=== PATIENT | female | born 1980 | race Caucasian/White ===

== ENCOUNTER 2020-09-24 11:15 | Inpatient (IN) ==
[2020-09-24] MEDS ORDERED: OXYTOCIN 30 UNITS/500 ML BAG IV PRN ×2 (11:50→14:36)
[2020-09-24] MEDS: LACTATED RINGER'S 1,000 ML IV PRN ×2 (12:07→13:02)
--- NOTE | 2020-09-24 12:12 | History & Physical Report ---
Date of Service September 24, 2020 Assessment & Plan (1) Supervision of elderly multigravida: Admit to L&D. Labs, EFM, toco. IV access. COVID swab per policy. Initial BP 130s/90s, will also obtain preeclampsia labs to r/o (CBC already ordered, CMP, pro/creat ratio). Initial urine dip 4+ proteinuria with large blood. Anticipate . Would like epidural. Admission and Anticipated Discharge Date Admission Date: September 24, 2020 History of Present Illness Chief Complaint: contractions Primary Care Provider: NUBIA Ovalle 39yo @ 40 09/27, presents with worsening contractions. Was at L&D last night for eval for r/o labor, over that time did not have cervical change and was not ashley in a labor pattern and was discharged home. Since then, ctx have gotten stronger and closer together. She returns with report of ctx Q4 min. No ROM. + movement. No vaginal bleeding. complicated by AMA, h/o 36w delivery with prior . Rh positive, rubella immune, GBS neg. Allergies Allergy/AdvReac Type Severity Reaction Status Date / Time Sulfa (Sulfonamide Allergy Severe ANAPHYLAXIS Verified 09/24/20 11:27 Antibiotics) Home Medications Medication Instructions Recorded Confirmed Type prenat.vits,denny,euc-nwld-kaxlj 1 tab PO DAILY 02/23/20 09/24/20 History breast pump #1 ea 07/27/20 09/21/20 Rx Patient History Medical History Encounter for anatomic survey premature rupture of membranes Surgical History S/P wisdom tooth extraction Family History Grandmother (Maternal) Twin Aunt Twin Breast cancer Father Hypertension Social History Smoking Status: Never smoker Hx Alcohol Use: No Hx Substance Use: No Preferred Language: Latvian Communication Ability: Effective Beliefs That Will Affect Care: None marital status: marital status details: Gallo (39) [phone] Current Living Situation: Spouse Current Living Situation Comment: Lives with spouse, daughter, 1 dog. current occupational status: employed current occupation: Chiropractor. Other Information That Helps Us Care for You: No Feels Safe at Home: Yes Safety Concerns: Feels Safe At This Time Assistive Devices: None Review of Systems All systems reviewed & are unremarkable except as noted in HPI & below Physical Exam Constitutional: WD/WN, vitals as above Respiratory: normal respiratory effort, lungs clear to auscultation no respiratory distress Cardiovascular: Rate/Rhythm: regular rate and regular rhythm Gastrointestinal (Abdomen): Inspection/Auscultation: abdomen normal to inspection Percussion/Palpation: abdomen soft; abdomen nontender Gravid. No s/s chorio or abruption. Skin: no rashes, warm and dry Psychiatric: A+Ox3, euthymic affect Results & Data ([facility]) Vital Signs (Past 12 Hours) Vital Signs Temp Pulse Resp BP 09/24/20 11:55 83 137/97 09/24/20 11:37 88 138/96 09/24/20 11:26 36.7 C 18 09/24/20 11:24 95 H 137/92 Monitoring External Monitor FHT Cat 1 [place] Q 2-4 min SVE 7cm with bulging membranes per RN check Coding Level of Care Code None Diagnoses Supervision of elderly multigravida O09.529
[2020-09-24] MEDS ORDERED: ePHEDrine sulfate 50 MG/ML AMP ONE (12:19)
[2020-09-24] MEDS ORDERED: BUPIVACAINE 0.25% 30 ML VIAL ONE (12:19)
[2020-09-24] MEDS ORDERED: fentaNYL citrate 100 MCG/2 ML VIAL ONE (12:19)
[2020-09-24] MEDS ORDERED: SODIUM CHLORIDE 0.9% INJ 10 ML VIAL ONE (12:19)
[2020-09-24] MEDS ORDERED: fentaNYL 2MCG/ML ROPIVACAINE 1.25MG/ML 100 ML BAG EPI ONE (12:20)
[2020-09-24] MEDS ORDERED: ONDANSETRON INJ 2 MG/ML 2 ML VIAL IV PRN (12:28)
[2020-09-24] MEDS ORDERED: ePHEDrine sulfate 50 MG/ML AMP IV PRN (12:28)
[2020-09-24] MEDS ORDERED: NALOXONE HCL 1 MG in SODIUM CHLORIDE 0.9% 1000ML 1,000 ML IV PRN (12:28)
[2020-09-24] MEDS ORDERED: fentaNYL 2MCG/ML ROPIVACAINE 1.25MG/ML 100 ML BAG EPI PRN (12:28)
[2020-09-24] MEDS ORDERED: diphenhydrAMINE 50 MG/ML VIAL IV PRN (12:28)
[2020-09-24] MEDS ORDERED: NALOXONE HCL 0.4 MG/1 ML VIAL/CARP IV PRN (12:28)
[2020-09-24 12:32] LABS: Hematocrit (blood only) 34.6 % (37-47); Hemoglobin 12.1 g/dL (12.0-16.0); Mean Corpuscular Hemoglobin 31.9 pg (25-34); Mean Corpuscular Volume 91.3 fL (80-100); Mean Platelet Volume 10.6 fL (7.4-10.4); Platelet Count 143 K/uL (130-400); RDW Coefficient of Variation 13.8 % (11.5-14.5); RDW Standard Deviation 45.8 fL (36.4-46.3); Red Blood Count 3.79 M/uL (4.2-5.4)
[2020-09-24 12:47] LABS: Albumin Level 2.5 gm/dl (3.4-5.0); BUN Creatinine Ratio 17.3 (10-20); Creatinine Clr Calc Pharmacy 103.3 ml/min; Est GFR (Non-African American) 101.8
[2020-09-24 12:50] LABS: Albumin Globulin Ratio 0.6 (0.9-2); Bilirubin,Total 0.3 mg/dl (0.2-1); Globulin 4.4 gm/dl (2.5-4.0); Total Protein 6.9 gm/dl (6.4-8.2)
--- NOTE | 2020-09-24 13:05 | Anesthesiology Consultation ---
Date of Service September 24, 2020 Assessment & Plan ASA ASA2 Proposed Anesthesia Anesthesia Type: Labor Epidural Risk / Benefits Reviewed With: PT / POA / Parent / Guardian, Accepts Plan and Informed Consent Obtained History Height/Weight Height: 5 ft 3 in Weight: 80.739 kg Allergies Allergy/AdvReac Type Severity Reaction Status Date / Time Sulfa (Sulfonamide Allergy Severe ANAPHYLAXIS Verified 09/24/20 11:27 Antibiotics) Medications Home Medications Medication Instructions Recorded Confirmed Last Taken prenat.vits,denny,liz-djuk-debrd 1 tab PO DAILY 02/23/20 09/24/20 09/23/20 12:00 breast pump #1 ea 07/27/20 09/21/20 Unknown Active Medications Generic Name Dose Route Start Last Admin Trade Name Freq PRN Reason Stop Dose Admin Lactated Ringer's 1,000 mls @ 125 mls/hr 09/24/20 11:50 09/24/20 13:03 Lr IV 09/26/20 11:49 125 mls/hr .Q8H PRN Infusion L&D Protocol Protocol Past Medical History Medical History Encounter for anatomic survey premature rupture of membranes Exercise / Class Metabolic Activity II 4-5 Yardwork/Stairs/Walk up hill Past Family History Family History Grandmother (Maternal) Twin Aunt Twin Breast cancer Father Hypertension Past Surgical History Surgical History S/P wisdom tooth extraction Past Anesthesia History No Hx of Anesthesia Complications and No Family Hx of Anesthesia Complications History of PONV No Hx of PONV and No Hx of Motion Sickness Social History Smoking Status: Never smoker Hx Alcohol Use: No Hx Substance Use: No Review of Systems denies fever/cough/ colds/ chest pain/ SOB/ BHASKAR denies BHASKAR Physical Exam Vital Signs Last Vital Signs Temp 36.7 C 09/24/20 11:26 Pulse 82 09/24/20 13:03 Resp 18 09/24/20 11:26 BP 133/82 09/24/20 13:03 Pulse Ox 97 09/24/20 12:59 ENMT Mouth: no TMJ abnormality and no dentition abnormality Thyromental Distance: > or= 3.5 Finger Breadths Mallampati Class: II Neck neck extension not limited Respiratory normal respiratory effort; no respiratory distress Auscultation: lungs clear to auscultation bilaterally Cardiovascular Rate/Rhythm: regular rate and regular rhythm Neurologic moves all extremities Psychiatric Orientation: alert and oriented x 3 Testing Laboratory Results 09/24/20 12:13 09/24/20 12:13
--- NOTE | 2020-09-24 14:35 | Delivery Summary ---
Vaginal Delivery Summary Date of Service September 24, 2020 Vaginal Delivery Summary VAVD and 3rd Degree LAC Vaginal Delivery Summary: Pre-delivery diagnoses: 39yo @ 40 09/27, spontaneous labor, AMA, h/o delivery Post-delivery diagnoses: same, 3rd degree perineal laceration, shoulder dystocia - mild Procedure: vacuum-assisted vaginal delivery, repair of 3rd degree perineal laceration Surgeon: Therese Aiken DO Complications: none Findings: Viable female . Apgars: 7/8. Weight pending, please see nursery chart. Estimated blood loss: 300ml Description of delivery: The patient progressed to 9cm with epidural anesthesia. FHT dropped with ctx to 70s, then initially returned to baseline, however then began to be slow to return to baseline. With cervix exam revealing cervix soft and multiparous, I felt that with patient pushing and my retraction of cervix, we could get baby to descend through the pelvis through delivery. Predicted that this would be the fastest method of delivery, given 0 station and multiparous mother. I discussed with patient, she was agreeable and she then began to push. With 2 pushes, able to retract cervix behind head and station descended to +1 station. At this time FHT were bradycardic in the 60s to 80s and would likely require multiple pushes for delivery. Contraction pattern was irregular, and therefore I felt the baby needed to be delivered sooner rather than later, therefore, I verbally counseled patient on the need for vacuum delivery to assist in descent of head. She agreed, and the Kiwi vacuum was applied to the flexion point of the head (YURIY position), and using gentle downward motion, head was brought to with the next push. The vacuum was removed, and patient then pushed once more to deliver the head in YURIY position. The head delivered in YURIY position. Nuchal cord x 1, tight, noted and reduced. The anterior shoulder did not immediately deliver, and the head retracted against the perineum in "turtle sign." The patient was repositioned - head of bed laid flat, legs flexed into McRobert's maneuver. Anterior shoulder still not delivering, and suprapubic pressure was applied. This was not successful, therefore attempt was made at delivery of posterior shoulder. The posterior shoulder delivered, and this allowed anterior shoulder to free, and this was immediately followed by the body. The cord was doubly clamped and cut, and the baby was immediately handed over to nursery team. A segment was retained for cord gases. Cord blood was obtained. The placenta was delivered spontaneously intact with a 3-vessel cord. The uterus and vagina were swept of clots and debris. IV pitocin was given. The uterus became firm. The cervix, vagina, and perineum were inspected and a partial 3rd degree perineal laceration was found. The anal sphincter was mostly intact, however the anterior aspect was and this was brought together with a dzhqnu-ls-ckiep stitch of 3-0 Chromic. The remaining 2nd degree laceration was repaired with 3-0 vicryl in standard fashion. Excellent hemostasis was observed. The mother and baby are recovering in stable and good condition in the room. Sponge, needle and instrument counts were correct x 2. After delivery, I discussed the above events with patient and her in room and answered questions. DO TAMIKA NoelMelodie [facility] [place] Vaginal Delivery Charge Vaginal Delivery Codes: 92766 global code for the antepartum, delivery, and post- Delivery Type Details: VAVD and 3rd Degree LAC
[2020-09-24] MEDS ORDERED: SUPERCREAM 0.870% 15 GM JAR EXT PRN (14:36)
[2020-09-24] MEDS ORDERED: oxyCODONE/ACETAMINOPHEN 5mg/325mg TAB PO PRN (14:36)
[2020-09-24] MEDS ORDERED: DIPHTHERIA/TETANUS/PERTUSSIS 0.5 ML SYR/VIAL IM ONE (14:36)
[2020-09-24] MEDS ORDERED: ACETAMINOPHEN 325 MG TAB PO PRN (14:36)
[2020-09-24] MEDS ORDERED: BENZOCAINE 20% AER SPR 82.5 GM CAN EXT PRN (14:36)
[2020-09-24 14:41] LABS: Base Excess Cord Arterial Bld -6.4 mEq/L (-9-1.8); CO2 Cord Arterial Blood 66 mmHg (39.1-73.5); Cord Venous Blood HCO3 22 mmol/L (18.4-26.8); Cord Venous Blood PCO2 56 mmHg (30.4-57.2); Cord Venous Blood PO2 21 mmHg (14.1-43.3); Cord Venous Blood pH 7.21 (7.20-7.44); HCO3 Cord Arterial Blood 24 mmol/L (19.7-28.5); PO2 Cord Arterial Blood 14 mmHg (4.1-31.7); pH Cord Arterial Blood 7.17 (7.1-7.38)
[2020-09-24 14:42] LABS: O2 Saturation Cord Venous Bld < 60.0 % (<68); Oxygen Sat Cord Arterial Blood < 60.0 % (<60)
--- NOTE | 2020-09-24 17:48 | Anesthesiology Progress Note ---
Date of Service September 24, 2020 Anesthesia Post Procedure Vital Signs Vital Signs: Temp Pulse Resp BP Pulse Ox 09/24/20 16:47 36.5 C 86 20 141/91 H 09/24/20 16:32 81 143/89 H 09/24/20 16:17 88 148/86 H 09/24/20 16:02 81 149/89 H 09/24/20 15:47 75 138/90 09/24/20 15:32 78 135/85 09/24/20 15:17 80 20 136/79 09/24/20 15:02 86 20 144/81 H 09/24/20 14:49 91 H 20 135/81 09/24/20 14:32 92 H 20 139/87 09/24/20 14:17 86 134/85 09/24/20 14:02 87 131/94 09/24/20 13:54 107 H 100 09/24/20 13:49 105 H 99 09/24/20 13:45 104 H 91 09/24/20 13:44 109 H 100 09/24/20 13:43 88 127/89 09/24/20 13:41 113 H 137/92 09/24/20 13:40 107 H 88 L 09/24/20 13:39 97 H 124/86 97 09/24/20 13:37 94 H 118/78 09/24/20 13:35 89 128/81 91 09/24/20 13:34 84 95 09/24/20 13:33 87 124/78 09/24/20 13:31 74 126/79 09/24/20 13:29 79 129/81 97 09/24/20 13:27 72 119/79 09/24/20 13:25 68 119/79 09/24/20 13:24 81 96 09/24/20 13:23 77 121/82 09/24/20 13:21 74 119/80 09/24/20 13:19 78 121/80 96 09/24/20 13:17 81 124/81 09/24/20 13:15 79 127/83 09/24/20 13:14 88 97 09/24/20 13:13 87 124/81 09/24/20 13:12 95 H 135/74 09/24/20 13:09 93 H 98 09/24/20 13:07 99 H 138/88 09/24/20 13:05 86 137/82 09/24/20 13:04 84 98 09/24/20 13:03 82 133/82 09/24/20 13:01 87 127/85 09/24/20 12:59 91 H 130/87 97 09/24/20 12:57 77 131/87 09/24/20 12:55 80 124/82 09/24/20 12:54 84 96 09/24/20 12:53 104 H 138/96 09/24/20 12:52 107 H 92 09/24/20 12:51 80 133/94 09/24/20 12:49 81 99 09/24/20 12:44 105 H 83 L 09/24/20 12:39 85 98 09/24/20 12:38 95 H 89 L 09/24/20 12:34 82 97 09/24/20 12:29 101 H 99 09/24/20 12:25 92 H 143/95 H 09/24/20 12:24 78 97 09/24/20 11:55 83 137/97 09/24/20 11:37 88 138/96 09/24/20 11:26 36.7 C 18 09/24/20 11:24 95 H 137/92 Pain Intensity Bilateral Abdomen: Pain Intensity: 7 Transfer of Care Handoff Completed per policy Notes Mental Status: alert / awake / arousable and participated in evaluation Patient Amnestic to Procedure: Yes Nausea / Vomiting: adequately controlled Pain: adequately controlled Airway Patency, RR, SpO2: stable & adequate BP & HR: stable & adequate Hydration State: stable & adequate Anesthetic Complications: no major complications apparent and Pt Satisfied with anesthetic care
[2020-09-24] MEDS: IBUPROFEN 600 MG TAB PO PRN ×2 (19:24→23:13)
[2020-09-24] MEDS: DOCUSATE SODIUM 100 MG CAP PO SCH (20:17)
--- NOTE | 2020-09-24 22:00 | Obstetrical Progress Note ---
Date of Service September 24, 2020 Assessment & Plan Admission and Anticipated Discharge Date Admission Date: September 24, 2020 Subjective Patient is asymptomatic. Elevated BPs, 150s/100. Will repeat preeclampsia labs. Start labetalol 100mg. Results & Data ([facility]) Vital Signs (Past 12 Hours) Vital Signs Temp Pulse Pulse Resp BP BP BP 09/24/20 21:45 173/113 H 09/24/20 21:12 149/91 H 153/102 H 09/24/20 20:17 146/97 H 09/24/20 19:07 36.6 C 76 20 146/94 H 09/24/20 17:50 81 20 126/85 09/24/20 16:47 36.5 C 86 20 141/91 H 09/24/20 16:32 81 143/89 H 09/24/20 16:17 88 148/86 H 09/24/20 16:02 81 149/89 H 09/24/20 15:47 75 138/90 09/24/20 15:32 78 135/85 09/24/20 15:17 80 20 136/79 09/24/20 15:02 86 20 144/81 H 09/24/20 14:49 91 H 20 135/81 09/24/20 14:32 92 H 20 139/87 09/24/20 14:17 86 134/85 09/24/20 14:02 87 131/94 09/24/20 13:54 107 H 09/24/20 13:49 105 H 09/24/20 13:45 104 H 09/24/20 13:44 109 H 09/24/20 13:43 88 127/89 09/24/20 13:41 113 H 137/92 09/24/20 13:40 107 H 09/24/20 13:39 97 H 124/86 09/24/20 13:37 94 H 118/78 09/24/20 13:35 89 128/81 09/24/20 13:34 84 09/24/20 13:33 87 124/78 09/24/20 13:31 74 126/79 09/24/20 13:29 79 129/81 09/24/20 13:27 72 119/79 09/24/20 13:25 68 119/79 09/24/20 13:24 81 09/24/20 13:23 77 121/82 09/24/20 13:21 74 119/80 09/24/20 13:19 78 121/80 09/24/20 13:17 81 124/81 09/24/20 13:15 79 127/83 09/24/20 13:14 88 09/24/20 13:13 87 124/81 09/24/20 13:12 95 H 135/74 09/24/20 13:09 93 H 09/24/20 13:07 99 H 138/88 09/24/20 13:05 86 137/82 09/24/20 13:04 84 09/24/20 13:03 82 133/82 09/24/20 13:01 87 127/85 09/24/20 12:59 91 H 130/87 09/24/20 12:57 77 131/87 09/24/20 12:55 80 124/82 09/24/20 12:54 84 09/24/20 12:53 104 H 138/96 09/24/20 12:52 107 H 09/24/20 12:51 80 133/94 09/24/20 12:49 81 09/24/20 12:44 105 H 09/24/20 12:39 85 09/24/20 12:38 95 H 09/24/20 12:34 82 09/24/20 12:29 101 H 09/24/20 12:25 92 H 143/95 H 09/24/20 12:24 78 09/24/20 11:55 83 137/97 09/24/20 11:37 88 138/96 09/24/20 11:26 36.7 C 18 09/24/20 11:24 95 H 137/92 Pulse Ox 09/24/20 21:45 09/24/20 21:12 09/24/20 20:17 09/24/20 19:07 99 09/24/20 17:50 09/24/20 16:47 09/24/20 16:32 09/24/20 16:17 09/24/20 16:02 09/24/20 15:47 09/24/20 15:32 09/24/20 15:17 09/24/20 15:02 09/24/20 14:49 09/24/20 14:32 09/24/20 14:17 09/24/20 14:02 09/24/20 13:54 100 09/24/20 13:49 99 09/24/20 13:45 91 09/24/20 13:44 100 09/24/20 13:43 09/24/20 13:41 09/24/20 13:40 88 L 09/24/20 13:39 97 09/24/20 13:37 09/24/20 13:35 91 09/24/20 13:34 95 09/24/20 13:33 09/24/20 13:31 09/24/20 13:29 97 09/24/20 13:27 09/24/20 13:25 09/24/20 13:24 96 09/24/20 13:23 09/24/20 13:21 09/24/20 13:19 96 09/24/20 13:17 09/24/20 13:15 09/24/20 13:14 97 09/24/20 13:13 09/24/20 13:12 09/24/20 13:09 98 09/24/20 13:07 09/24/20 13:05 09/24/20 13:04 98 09/24/20 13:03 09/24/20 13:01 09/24/20 12:59 97 09/24/20 12:57 09/24/20 12:55 09/24/20 12:54 96 09/24/20 12:53 09/24/20 12:52 92 09/24/20 12:51 09/24/20 12:49 99 09/24/20 12:44 83 L 09/24/20 12:39 98 09/24/20 12:38 89 L 09/24/20 12:34 97 09/24/20 12:29 99 09/24/20 12:25 09/24/20 12:24 97 09/24/20 11:55 09/24/20 11:37 09/24/20 11:26 09/24/20 11:24 PG Care Time/CCT Total # of Minutes Spent Total Time Spent with Patient: Total time spent is greater than 50% in coordination of care (as documented) at patient's floor/unit and/or counseling patient: Coding Level of Care Code None
[2020-09-24] MEDS: LABETALOL HCL 100 MG TAB PO SCH (22:04)
[2020-09-24 22:27] LABS: Hematocrit (blood only) 29.1 % (37-47); Mean Corpuscular Hemoglobin 31.2 pg (25-34); Mean Corpuscular Hgb Conc 34.4 g/dL (32-36); Mean Corpuscular Volume 90.7 fL (80-100); Mean Platelet Volume 10.4 fL (7.4-10.4); Platelet Count 127 K/uL (130-400); RDW Coefficient of Variation 13.7 % (11.5-14.5); RDW Standard Deviation 45.4 fL (36.4-46.3); Red Blood Count 3.21 M/uL (4.2-5.4); White Blood Count 10.54 K/uL (4.8-10.8)
[2020-09-24 22:50] LABS: Albumin Level 2.1 gm/dl (3.4-5.0); BUN Creatinine Ratio 15.3 (10-20); Calcium 7.6 mg/dl (8.5-10.1); Creatinine Clr Calc Pharmacy 96.9 ml/min; Est GFR (African American) 109.2; Est GFR (Non-African American) 94.2; Potassium 3.9 mmol/L (3.5-5.1)
[2020-09-24 22:55] LABS: Albumin Globulin Ratio 0.6 (0.9-2); Bilirubin,Total 0.2 mg/dl (0.2-1); Globulin 3.3 gm/dl (2.5-4.0); Total Protein 5.4 gm/dl (6.4-8.2)
[2020-09-25] MEDS: IBUPROFEN 600 MG TAB PO PRN ×3 (04:00→12:15)
--- NOTE | 2020-09-25 05:36 | Obstetrical Progress Note ---
Date of Service <Ivan Pearson MD - Last Filed: 09/25/20 07:44> September 25, 2020 Assessment & Plan <Ivan Pearson MD - Last Filed: 09/25/20 07:44> (1) Elevated blood pressure reading without diagnosis of hypertension: Evelyn is a 39 y/o female who is now PPD #1 following at 38- 7, with immediate period notable for elevated BPs (140-170s+/80-100s) without preeclamptic symptoms - now normalized on labetalol - and mild thrombocytopenia to 127. S/P - Feels well today. Eating well, voiding well, ambulating well. - Pain well controlled with ibuprofen 600mg Q4H PRN. - Routine PPD care -- promote OOB, ambulation - After discharge will have [address] Aiken Elevated BPs in Immediate Period -- without symptoms of preeclampsia; now stable on labetalol - BPs ranging from 140-170+/80-100s in the immediate period, lasting ~7-8 hours --> now within normal range s/p labetalol - Without h/o previous gHTN/preeclampsia - Preeclampsia labs notable for mild thrombocytopenia to 127, normal serum creatinine, no transaminitis - Repeat preeclampsia labs, including urine protein/creatinine - trend this AM - Continue labetalol 100mg b.i.d. - RX sent - Office BP check in 1 week upon d/c (2) Vacuum-assisted vaginal delivery: Subjective <Ivan Pearson MD - Last Filed: 09/25/20 07:44> Evelyn is a 39 y/o female who is now PPD #1 following at 38-7, with immediate period notable for elevated BPs (140-170s+/80-100s). Tolerating labetalol well since initiation last night -- denies dizziness, lightheadedness upon standing. Denies headaches, changes in vision, chest pain, shortness of breath, abdominal pain aside from cramping, new swelling. Reports feeling well overall this morning. Her mild abdominal cramping is well managed on analgesics. Voiding without difficulty. Tolerating meals well and able to ambulate some. Endorses passing gas. Some persistent lochia with some improvement this morning. Breast feeding without difficulty. Review of Systems -- as above Physical Exam <Ivan Pearson MD - Last Filed: 09/25/20 07:44> General: Alert, oriented. No acute distress. Cardiac: Regular rate and rhythm, no murmurs/rubs/gallops. Respiratory: Clear to auscultation bilaterally a/p, no wheezes/rales/rhonchi. No increased work of breathing. Symmetrical chest rise. No respiratory distress. Abdomen: Soft, nontender, nondistended. Bowel sounds present. Uterus: Uterine fundus firm, palpable ~2 cm below umbilicus. Lower Extremities: No lower extremity edema or swelling. No deep calf pain. Concepcion's negative bilaterally. Results & Data ([facility]) <Ivan Pearson MD - Last Filed: 09/25/20 07:44> Vital Signs (Past 12 Hours) Vital Signs Temp Pulse Resp BP BP Pulse Ox 09/25/20 03:10 36.5 C 64 16 120/70 99 09/25/20 01:15 78 129/83 09/24/20 23:17 36.7 C 60 18 149/91 H 98 09/24/20 21:54 151/100 H 09/24/20 21:52 159/105 H 09/24/20 21:45 173/113 H 09/24/20 21:12 149/91 H 153/102 H 09/24/20 20:17 146/97 H 09/24/20 19:07 36.6 C 76 20 146/94 H 99 09/24/20 17:50 81 20 126/85 <Therese Aiken DO - Last Filed: 09/25/20 08:23> Co-Signing Physician Notes Resident Physician Supervision Note: I was present with Dr. Pearson during the history and exam. I discussed the case with the resident and agree with the findings and plan as documented in the note. Any exceptions or clarifications are listed here: PPD#1 doing well, desires discharge home. Last night, started on labetalol 100mg BID for elevated BPs. BPs since starting this have been wnl. She is asymptomatic. Platelets this morning dropped slightly to 117, will repeat labs again at noon. Documented By: Therese Aiken DO Resident Activity Tracking <Ivan Pearson MD - Last Filed: 09/25/20 07:44> Resident Involvement: Resident Care Provided Care Provided: Adult Hospital Medicine and OB Delivery
[2020-09-25 06:43] LABS: Hemoglobin 9.4 g/dL (12.0-16.0); Mean Corpuscular Hemoglobin 31.3 pg (25-34); Mean Corpuscular Hgb Conc 34.8 g/dL (32-36); Mean Platelet Volume 10.3 fL (7.4-10.4); Platelet Count 117 K/uL (130-400); RDW Coefficient of Variation 13.8 % (11.5-14.5); RDW Standard Deviation 45.6 fL (36.4-46.3); White Blood Count 9.07 K/uL (4.8-10.8)
[2020-09-25 06:55] LABS: BUN Creatinine Ratio 14.8 (10-20); Calcium 7.6 mg/dl (8.5-10.1); Est GFR (African American) 129.5; Est GFR (Non-African American) 111.7; Potassium 3.5 mmol/L (3.5-5.1)
[2020-09-25 06:58] LABS: Albumin Globulin Ratio 0.6 (0.9-2); Bilirubin,Total 0.3 mg/dl (0.2-1); Globulin 3.3 gm/dl (2.5-4.0); Total Protein 5.3 gm/dl (6.4-8.2)
[2020-09-25] MEDS ORDERED: PRENATAL VITAMIN 1 TAB PO SCH (08:00)
[2020-09-25] MEDS: LABETALOL HCL 100 MG TAB PO SCH (08:01)
[2020-09-25] MEDS: DOCUSATE SODIUM 100 MG CAP PO SCH (08:01)
[2020-09-25] MEDS ORDERED: NON-FORMULARY MEDICATION (Prenat.Vits,Cal,Min-Iron-Folic tablet) PO SCH (09:00)
[2020-09-25 12:31] LABS: Hemoglobin 9.6 g/dL (12.0-16.0); Mean Corpuscular Hemoglobin 31.4 pg (25-34); Mean Corpuscular Hgb Conc 34.3 g/dL (32-36); Mean Corpuscular Volume 91.5 fL (80-100); Mean Platelet Volume 9.8 fL (7.4-10.4); Platelet Count 128 K/uL (130-400); RDW Standard Deviation 46.3 fL (36.4-46.3); Red Blood Count 3.06 M/uL (4.2-5.4); White Blood Count 9.97 K/uL (4.8-10.8)
[2020-09-25 12:59] LABS: Albumin Level 2.1 gm/dl (3.4-5.0); BUN Creatinine Ratio 12.7 (10-20); Calcium 7.7 mg/dl (8.5-10.1); Creatinine Clr Calc Pharmacy 98.1 ml/min; Est GFR (African American) 110.8; Est GFR (Non-African American) 95.6; Potassium 3.5 mmol/L (3.5-5.1)
[2020-09-25 13:02] LABS: Albumin Globulin Ratio 0.6 (0.9-2); Bilirubin,Total 0.2 mg/dl (0.2-1); Globulin 3.3 gm/dl (2.5-4.0); Total Protein 5.4 gm/dl (6.4-8.2)
[2020-09-25] MEDS ORDERED: bisacodyL 5 MG TABEC PO SCH (20:00)
== END 2020-09-25 15:15 | disposition home or self-care (01) | DRG 768 ==
LOC: OPB 11:15 → 4S1 11:16 → 4S2 17:25